=== PATIENT | female | born 1970 | race Caucasian/White ===

== ENCOUNTER 2019-02-08 02:17 | Outpatient (CLI) | payer OTHER, SELFPAY ==
--- NOTE | 2019-02-08 08:00 | DI.MAMMO_ITS ---
SYMPTOMS/DIAGNOSIS: SCREENING, Z12.39 MAMMOGRAMS: Mammograms were interpreted according to the usual protocol including computer analysis with CAD system, tomosynthesis and C view imaging. Comparison is with the prior examinations. No suspicious masses or microcalcifications are seen. There is no definite evidence of malignancy. IMPRESSION: Negative mammogram. Routine screening is recommended. Category 1, breast density D. MQSA ASSESSMENT OF FINDINGS: Negative. Category 1. Patient will receive a letter notifying them of these results. BI-RADS category D. The breasts are extremely dense, which lowers the sensitivity of mammography.
== END 2019-02-08 02:37 ==
PROVIDERS: PCP Family Medicine; Visit Provider Family Medicine
DX: Z12.31 Encounter for screening mammogram for malignant neoplasm of breast (principal)
CPT/HCPCS: 77063; 77067

== ENCOUNTER 2020-09-24 10:59 | Outpatient (CLI) | payer OTHER, SELFPAY ==
[2020-09-26 16:23] LABS: COVID-19 RT-PCR Result NEGATIVE (Negative)
== END 2020-09-24 11:19 ==
PROVIDERS: PCP Family Medicine; Visit Provider Surgery
DX: Z11.59 Encounter for screening for other viral diseases (principal); Z01.818 Encounter for other preprocedural examination
CPT/HCPCS: U0003

== ENCOUNTER 2020-09-29 06:17 | Day surgery (SDC) | payer OTHER, SELFPAY ==
[2020-09-29 06:29] VITALS: BP 107/74; PULSE 60; RESP 16; TEMP 37.1; O2SAT 100
[2020-09-29] MEDS: Lactated Ringers 1,000 ML 80 ML IV (06:56)
--- NOTE | 2020-09-29 07:20 | PDOC.DSDIS_ITS ---
Discharge Plan Disposition Patient Disposition: HOME Condition: Good Discharge Details Reason For Visit: EPIGASTRIC HERNIA Repair, colonoscopy Attending Provider: Christy Harper Primary Care Provider: Silvana Dugan Discharge Instructions Additional Instructions: The top bandage can be removed tomorrow. The steri strips will usually stick for about a week. When the edges start to curl up, they can be removed. It is okay to shower tomorrow, the water can run over the steri strips Do not swim or soak in a tub for two weeks Call for any concerns including fever, increased pain, vomiting, incision redness or drainage. Do not lift more than 15 pounds for four weeks. Walking and stairs are fine. Do not drive if on narcotic pain meds or if limited by pain. May use Tylenol alternating with ibuprofen for pain control. Ice is also an option. The maximum dose for Tylenol is 4000 mg/day. May use ibuprofen 800 mg every 8 hours as needed. If concerned about constipation, you may use a stool softener or milk of magnesia. Findings: Your colonoscopy was normal Follow up: Plan for routine screening colonoscopy in 10 years or sooner if symptoms arise. Please call if you develop: fevers >101.5 Nausea or Vomiting Abdominal pain that is not transient DAY SURGERY UNIT POST COLONOSCOPY INSTRUCTIONS 1. Because there will be medication in your system for the next 24 hours, you may feel a little sleepy. Your coordination will be affected. Therefore: a. Do not drive or operate dangerous equipment for 24 hours. b. Do not drink alcohol beverages for 24 hours (not even beer). c. Plan to go home and rest for the day. 2. Generally there are no restrictions on your activity after a day or so has gone by, but you may feel a bit fatigued for a few days. 3 After you arrive home you may have a light meal and return to a normal diet as you can tolerate it without feeling sick to your stomach. 4. After surgery, you may feel pain or discomfort. This should be only transient, but if it persists please contact your doctor. 5. If there are any questions regarding the findings of your procedure, please feel free to contact your doctor. 6. If you are unable to contact your doctor with a problem, contact the hospital at [phone]. 7. Continue all your regular medications unless directed otherwise. I understand the above instructions and have no questions. Signature of Patient or Responsible Adult Escort Date/Time Name of Responsible Adult Escort Signature of Nurse Date/Time Activity:: Do not lift more than 15# Remove Dressings/Wound Care:: 24 hours Shower/Bathe:: 24 hours Diet:: As Tolerated Discharge Orders Discharge Orders: Discharge Order (Routine); Ordered 09/29/20 Ordered By: Christy Harper DS: Diagnosis Discharge Diagnosis (1) Epigastric hernia: Status: Acute (2) Normal colonoscopy: Status: Acute
--- NOTE | 2020-09-29 07:22 | W.PM.OP ---
Date of service: 09/29/20 Time of Service: 08:51 Operative Note Operative Note DATE OF PROCEDURE: 09/29/20 PRE-OP DIAGNOSIS: Epigastric hernia, colon screening POST-OP DIAGNOSIS: other (Epigastric hernia, normal colon) PROCEDURE: Epigastric hernia repair Colonoscopy SURGEON: Christy Haprer BULK DELIVERY DRIVER: Felisha Delgadillo ANESTHESIA: MAC and local Indications: This 50 year old woman presents for repair of a symptomatic epigastric hernia. She is also due for screening colonoscopy Procedure Description: The patient was placed supine on the operating table. Propofol was titrated to sedation. Her abdomen was prepped and draped sterilely. The skin overlying the epigastric hernia was injected with 1% lidocaine and 0.5% marcaine. A small incision was made and subcutaneous tissue divided with cautery. A small hernia with preperitoneal fat present was identified. This was reduced through a fascial defect of less than 5mm. This was closed with two O Ethibond sutures. There was good hemostasis. The skin was closed with a 4-0 Monocril suture and dressed sterilely. The patient was repositioned into the left Hamilton position. Digital rectal examination revealed no abnormalities. The scope was advanced to the cecum without difficulty. The ileocecal valve and appendiceal orifice were clearly identified. The prep was good. The scope was slowly withdrawn over the course of greater than 6 minutes with no abnormalities seen in the ascending, transverse, descending, sigmoid colon or rectum including on retroflexed view. The patient tolerated the procedure well and was stable to recovery. Plan for routine screening colonoscopy in 10 years or sooner if symptoms indicate.
[2020-09-29] MEDS: Lidocaine 2% Multi-Dose 50 ML VIAL (07:59)
[2020-09-29] MEDS: Bupivacaine 0.5% Pres-Free 30 ML VIAL (08:00)
[2020-09-29 09:16] VITALS: BP 112/71; PULSE 52; RESP 16; TEMP 36.7; O2SAT 100
== END 2020-09-29 09:38 | disposition home or self-care (01) ==
PROVIDERS: PCP Family Medicine; Visit Provider Surgery
PROC: (CPT 49570; principal; 2020-09-29 07:30)
PROC: 0DJD8ZZ Inspection of Lower Intestinal Tract, Via Natural or Artificial Opening Endoscopic (ICD-10-PCS; CPT 45378; 2020-09-29 07:30)
DX: K43.9 Ventral hernia without obstruction or gangrene (principal); Z12.11 Encounter for screening for malignant neoplasm of colon
CPT/HCPCS: 49570; 45378; 81025; J0171; J1885; J2001; J2250; J2405